=== PATIENT | male | born 1990 | race Caucasian/White ===

== ENCOUNTER 2018-08-17 12:33 | Emergency (ER) | payer OTHER ==
[2018-08-17] MEDS ORDERED: Naproxen TAB* 250 MG PO ONE (13:16)
--- NOTE | 2018-08-17 14:22 | RAD ---
Indication: Low back pain. Over use injury. Comparison: No relevant prior exams available on the [facility] for comparison. Technique: AP, lateral, and oblique views lumbar sacral spine. Report: Alignment is anatomic. No cortical disruption or trabecular impaction to indicate a vertebral body fracture. Oblique views without evidence for spondylolysis. Preserved disc spaces. Unremarkable soft tissue contours. IMPRESSION: #. Negative radiographic exam of the lumbar sacral spine.
[2018-08-17 14:53] VITALS: BP 122/66
--- NOTE | 2018-08-18 05:54 | ED ---
Back Pain - HPI Summary HPI Summary: Pt. is a 28 y.o male who presents to the ER for back pain secondary to work. Pt. states he works at a [employer] company and constantly lifts and twist at work. Pt. does not recall a specific injury but noted mid/low back pain x 1 week. Pt. states he tried taking tylenol/motrin but it did not help so he did not continue to take. Pt. denies bowel or bladder incontinence or retention. Pain does not radiate into legs. He denies leg numbness, tingling or weakness. Sxs are mild in severity. Movement makes symptoms worse. Rest makes sxs better. - History of Current Complaint Chief Complaint: EDBackInjuryPain Stated Complaint: BACK INJURY Time Seen by Provider: 08/17/18 13:01 Hx Obtained From: Patient Pain Intensity: 5 Pain Scale Used: 0-10 Numeric - Allergies/Home Medications Allergies/Adverse Reactions: Allergies Allergy/AdvReac Type Severity Reaction Status Date / Time No Known Allergies Allergy Verified 08/17/18 12:47 Home Medications: Home Medications NK [No Home Medications Reported] 08/17/18 [History Confirmed 08/17/18] PMH/Surg Hx/FS Hx/Imm Hx Previously Healthy: Yes - Immunization History Immunizations Up to Date: Yes Infectious Disease History: No Infectious Disease History: Denies: Traveled Outside the [place] in Last 30 Days - Social History Occupation: Employed Full-time Lives: Alone Alcohol Use: Occasionally Substance Use Type: Reports: Marijuana Substance Use Comment - Amount & Last Used: today Smoking Status (MU): Current Every Day Smoker Review of Systems Constitutional: Negative Genitourinary: Negative Positive: Other - back pain Neurological: Negative Negative: Weakness, Paresthesia, Numbness All Other Systems Reviewed And Are Negative: Yes Physical Exam Triage Information Reviewed: Yes Vital Signs On Initial Exam: Initial Vitals Temp Pulse Resp BP Pulse Ox 98 F 84 16 138/92 98 08/17/18 12:43 08/17/18 12:43 08/17/18 12:43 08/17/18 12:43 08/17/18 12:43 Vital Signs Reviewed: Yes Appearance: Positive: Well-Appearing - Pt. sitting in chair in NAD. Skin: Positive: Warm, Dry Head/Face: Positive: Normal Head/Face Inspection Eyes: Positive: Normal, EOMI Neck: Positive: Supple Musculoskeletal: Positive: Other - Midline upper lumbar tenderness. 5/5 strength in bilateral LEs with flexion and dorsiflexion. Neurological: Positive: Normal, CN Intact II-III Psychiatric: Positive: Affect/Mood Appropriate Diagnostics - Vital Signs Vital Signs Temp Pulse Resp BP Pulse Ox 08/17/18 14:52 98.5 F 74 18 122/66 98 08/17/18 12:43 98 F 84 16 138/92 98 - Laboratory Lab Statement: Any lab studies that have been ordered have been reviewed, and results considered in the medical decision making process. Back Pain Course/Dx - Course Course Of Treatment: Pt. presenting with ongoing nonradiating back pain. He has no neurological deficits or evidence or cauda equina syndrome. Xray obtained and is negative for acute findings, per radiology. Naproxen given for pain. Offered work excuse which pt. declined. Advised pt. he will need to f.u with his workmen's comp doctor or the [facility]. NSAIDS as directed. Apply warm compresses. Avoid heavy lifting. Return to ER if sxs change or worsen. - Diagnoses Differential Diagnosis/HQI/PQRI: Positive: Arthritis, Cauda Equina Syndrome, Fracture, Herniated Disc, Strain, Sprain Provider Diagnoses: Back strain Discharge - Sign-Out/Discharge Documenting (check all that apply): Patient Departure - Discharge Plan Condition: Good Disposition: HOME Patient Education Materials: Low Back Strain (ED), Thoracic Back Strain (ED) Referrals: [facility] [employer] [Outside] No Primary Care Phys,NOPCP [Primary Care Provider] - Additional Instructions: Schedule a follow up appointment with your workmen's compensation physician or the [facility] Apply warm compresses to back NSAIDs for pain as directed such as motrin Avoid heavy lifting Return to ER for increased pain, leg numbness/weakness, loss of bowel or bladder function - Billing Disposition and Condition Condition: GOOD Disposition: Home
== END 2018-08-17 14:52 | disposition home or self-care (01) ==
LOC: ED 12:33
DX: S39.012A Strain of muscle, fascia and tendon of lower back, initial encounter (principal); X58.XXXA Exposure to other specified factors, initial encounter; Y92.9 Unspecified place or not applicable; F17.200 Nicotine dependence, unspecified, uncomplicated
CPT/HCPCS: 72110; 99282; A9270-GY